=== PATIENT | female | born 2005 | race Caucasian/White ===

== ENCOUNTER 2024-03-29 02:51 | Emergency (ER) | payer OTHER ==
[~2024-03-29] VITALS: Ht 170.2 cm; Wt 108.0 kg
[2024-03-29 02:58] VITALS: BP 153/82; PULSE 127; RESP 18; TEMP 98.2; O2SAT 100
== END 2024-03-29 04:25 | disposition home or self-care (01) ==
LOC: ER 02:58
DX: F12.90 Cannabis use, unspecified, uncomplicated (principal); F41.9 Anxiety disorder, unspecified
CPT/HCPCS: 99283